=== PATIENT | female | born 1995 | race Caucasian/White ===

== ENCOUNTER 2021-09-18 10:00 | Outpatient (REF) | payer OTHER, SELFPAY ==
--- NOTE | ~2021-09-18 | US_ITS ---
EXAMINATION: US ABDOMEN COMPLETE CLINICAL INFORMATION: Right upper quadrant pain. COMPARISON: None TECHNIQUE: Real-time imaging of the abdominal viscera. FINDINGS: PANCREAS: Normal. ABDOMINAL AORTA: The proximal, mid, and distal segments are normal in caliber. INFERIOR VENA CAVA: Visualized portions are normal. LIVER: The liver is normal in size. The liver contour is normal. Liver echogenicity is diffusely increased. No focal hepatic lesion. There is no intrahepatic biliary duct dilatation seen. GALLBLADDER: Normal. The gallbladder is physiologically distended without evidence of stones, sludge, polyps, wall thickening or pericholecystic fluid. COMMON BILE DUCT: Normal in caliber measuring 0.2 cm in diameter. RIGHT KIDNEY: Normal. No hydronephrosis. No renal calculi or focal parenchymal lesions. The kidney measures 12.0 cm in maximum dimension. LEFT KIDNEY: Surgically absent. SPLEEN: Normal. The spleen measures 10.6 cm in maximum dimension. FREE FLUID: None. US/US abdomen complete IMPRESSION: Diffusely increased liver echogenicity. This is a nonspecific finding but most suggestive of hepatic steatosis. Correlation with liver enzymes recommended.
== END 2021-09-18 10:01 | disposition home or self-care (01) ==
LOC: HO.HMGCX 10:00
PROVIDERS: PCP Physician Assistant; Visit Provider Physician Assistant
DX: R10.11 Right upper quadrant pain (principal)
CPT/HCPCS: 76700